=== PATIENT | male | born 1980 | race Caucasian/White ===

== ENCOUNTER 2021-02-08 15:19 | Outpatient (REF) | payer BC, SELFPAY | END 2021-02-08 15:20 | disposition home or self-care (01) | LOC: LBN 15:19 | DX: Z30.2 Encounter for sterilization (principal) | CPT/HCPCS: 89240; 89310; 89321 ==

== ENCOUNTER 2021-02-13 13:42 | Outpatient (REF) | payer BC, SELFPAY ==
[2021-02-13 13:39] LABS: Sperm(Post-Vasectomy) Absent
== END 2021-02-13 13:43 | disposition home or self-care (01) ==
LOC: LBO 13:42
PROVIDERS: Visit Provider Urology
DX: Z30.2 Encounter for sterilization (principal)
CPT/HCPCS: 89321

== ENCOUNTER 2023-03-27 08:55 | Outpatient (CLI) | payer BC, SELFPAY ==
--- NOTE | 2023-03-27 08:30 | DI.RAD_ITS ---
Exam(s) XR SHOULDER LT COMPLETE 2+V EXAM: XR SHOULDER LT COMPLETE 2+V CLINICAL HISTORY: LEFT SHOULDER PAIN. TECHNIQUE: 2D digital imaging was performed. COMPARISON: No exams were available for comparison FINDINGS: Two views. No evidence of fracture or dislocation nor abnormal soft tissue calcifications. Subacromial space do es not appear diminished. No obvious degenerative changes in the glenohumeral joint. AC joint appea rs unremarkable as does the coracoid process. No evidence of os acromiale. Bone density normal. No significant osseous lesions. IMPRESSION: No significant radiograph findings on these two views of the left shoulder. DATA REPOSITORY: RADIATION DOSE DELIVERED:
== END 2023-03-27 08:56 | disposition home or self-care (01) ==
LOC: DIORS 08:55
PROVIDERS: PCP Nurse Practitioner Family; Visit Provider Student in an Organized Health Care Education/Training Program
DX: M25.512 Pain in left shoulder (principal)
CPT/HCPCS: 73030

== ENCOUNTER → 2023-04-09 16:27 | Outpatient (CLI) | payer BC, SELFPAY ==
--- NOTE | 2023-04-09 11:55 | DI.MRI_ITS ---
Exam(s) MR UPPER JOINT LT WO EXAM: MR UPPER JOINT LT WO CLINICAL HISTORY: PAIN M75.102 ROTATOR CUFF TEAR LEFT TECHNIQUE: Multiplanar multisequence MRI of the shoulder was performed. COMPARISON: CR XR SHOULDER LT COMPLETE 2+V from 03/27/2023 FINDINGS: MARROW:There is no evidence of fracture, Hill-Sachs deformity, nor ominous osseous lesions. There is a degenerative subarticular cyst the most anterior aspect of the greater tuberosity with some surroun ding bone edema. ROTATOR CUFF MECHANISM: AC JOINT/ACROMIUM: There are mild degenerative changes in the AC joint. No dominant downgoing osteop hytes causing impingement at this level. The undersurface of the acromion does not exhibit bony ridg ing. There is no enthesophyte at the level of the coracoacromial ligament.. There is no evidence of os acromiale. Supraspinatus: There is increased signal evident in the most anterior aspect of the supraspinatus ten don. No obvious full-thickness tear. No atrophy. There is no fluid in the subacromial bursa. Infraspinatus: Intact. No evidence of tear nor muscle atrophy. Teres Minor: Intact. No evidence of tear nor muscle atrophy. Subscapularis/anterior cuff: Intact. No abnormal signal at the level of the multipennate insertional fibers. No significant tear nor atrophy. BICEPS TENDON: Not displaced from the intertubercular groove although there is fluid in the tendon sh eath consistent with tenosynovitis. There is no loose intra-articular body within the tendon sheath. LABRUM: No abnormal signal seen in the superior labrum posterior to the biceps tendon attachment site . No evidence of SLAP tear. Posterior labrum appears intact. Linear lucency in the anterior labrum noted on 1 image which may represent a tear of the anterior lab rum. There is no abnormal intraosseous signal in the anteroinferior osseous glenoid. The inferior l abrum appears intact. There is no evidence of paralabral cyst. There is no obvious tear of the infe rior glenohumeral ligament. GLENOHUMERAL JOINT: No prominent joint effusion nor obvious loose intra-articular bodies. Some fluid is seen isolated to the biceps tendon sheath but no true articular fusion. No chondral defects. No osteophytes. QUADRILATERAL SPACE: No evidence of mass in the region of the axillary nerve and dorsal circumflex hu meral vessels. Visualized triceps muscle at this level appears unremarkable. IMPRESSION: 1. There is fluid around the biceps tendon within the intertubercular groove, consistent with biceps tenosynovitis. There is no obvious tear nor displacement of the long head biceps tendon. There is n o tear at its insertion on the anterosuperior labrum and no evidence of SLAP tear. There is no loose intra-articular body seen in the biceps tendon sheath. 2. Small linear focus noted in the anterior labrum mid aspect which may imply a small tear at this le mary. Posterior labrum appears unremarkable as does the inferior labrum. No paralabral cyst. No peggy dence of osseous Bankart lesion nor periosteal stripping from the glenoid. 3. There is some tendinitis signal evident within the more anterior aspect of the supraspinatus. No full-thickness tear. No atrophy. Other muscular components of the rotator cuff mechanism appear unr emarkable. DATA REPOSITORY:
== END ==
PROVIDERS: PCP Nurse Practitioner Family; Visit Provider Student in an Organized Health Care Education/Training Program
DX: M75.22 Bicipital tendinitis, left shoulder (principal); M25.512 Pain in left shoulder
CPT/HCPCS: 73221

== ENCOUNTER 2024-04-30 03:33 | Outpatient (CLI) | payer BC, SELFPAY ==
[2024-04-30 07:42] LABS: Hemoglobin A1C 5.4 % (<5.7)
[2024-04-30 07:50] LABS: Anion Gap 6.5 mmol/L (3-11); BUN 15 mg/dL (7-18); CO2 30.5 mmol/L (21.0-32.0); Calcium 9.5 mg/dL (8.5-10.1); Calculated LDL 108 mg/dL (<100); Chloride 106 mmol/L (98-107); Cholesterol 180 mg/dL (<200); Estimated GFR 95.18 (mL/min/1.73m2); Glucose 89 mg/dL (74-106); HDL Cholesterol 53 mg/dL (40-60); Potassium 4.4 mmol/L (3.5-5.1); Sodium 143 mmol/L (136-145); Triglyceride 97 mg/dL (<150)
== END 2024-04-30 03:34 | disposition home or self-care (01) ==
PROVIDERS: PCP Nurse Practitioner Family; Visit Provider Nurse Practitioner Family
DX: Z00.00 Encounter for general adult medical examination without abnormal findings (principal); J45.909 Unspecified asthma, uncomplicated
CPT/HCPCS: 36415; 80048; 80061; 83036

== ENCOUNTER 2024-05-05 23:00 | Outpatient (REF) | payer BC, SELFPAY | END 2024-05-05 23:01 | disposition home or self-care (01) | LOC: LBN 23:00 | PROVIDERS: PCP Nurse Practitioner Family; Visit Provider Nurse Practitioner Family | DX: J34.89 Other specified disorders of nose and nasal sinuses (principal) | CPT/HCPCS: 87077; 87070; 87186; 87205 ==

== ENCOUNTER 2024-07-15 12:12 | Outpatient (REF) | payer BC, SELFPAY ==
--- NOTE | 2024-07-15 08:30 | SKI_PTH ---
PATIENT: Orlin Reddy LOC: [facility] U#:[id number] AGE/SX: 44/M ROOM: RE07/15/[address]: Brett Otoole MD : 1980 BED: DIS: 07/15/2024 SPEC #: [id number] RECD: 07/15/24 12:45 STATUS: BEA REChay #: [id number] KENY: 07/15/24 08:[address]: Brett Otoole DEPT: Surgical Specimen RECD BY: Ledy Kaur ENTERED: 07/15/24 12:45 SP TYPE: SARITA MARISCAL DR: Marissa Kendall, LUZMARIA Tissues: 1 - SKIN BIOPSY(SHAVE/PUNCH) Procedures: SKIN LEVEL 4 Comments: [id number]
== END 2024-07-15 12:13 | disposition home or self-care (01) ==
LOC: LBN 12:12
PROVIDERS: PCP Nurse Practitioner Family; Visit Provider Otolaryngology
DX: L98.9 Disorder of the skin and subcutaneous tissue, unspecified (principal); L57.0 Actinic keratosis
CPT/HCPCS: 88305

== ENCOUNTER 2024-12-01 08:57 | Outpatient (CLI) | payer BC, SELFPAY ==
--- NOTE | 2024-12-01 08:30 | DI.RAD_ITS ---
Exam(s) XR FOOT RT COMPLETE EXAM: XR FOOT RT COMPLETE CLINICAL HISTORY: swelling of 1st MPJ, ?Ganglion, localized superficial swelling, mass, lump. TECHNIQUE: 2D digital imaging was performed. COMPARISON: No exams were available for comparison FINDINGS: 3 views No evidence of fracture or diastasis of the Lisfranc joint. There are mild degenerative changes in t he great toe metatarsophalangeal joint. The more lateral the 2 sesamoid bones subjacent to the great toe metatarsal head is noted to be bipartite. Other articulations of the foot appear unremarkable. No pes planus. There is a tiny inferior calcaneal spur. Bone density normal. No osseous lesions. IMPRESSION: Mild findings as above. No fractures. DATA REPOSITORY: RADIATION DOSE DELIVERED:
== END 2024-12-01 09:17 ==
LOC: DI 08:57
PROVIDERS: PCP Nurse Practitioner Family; Visit Provider Podiatrist
DX: M19.071 Primary osteoarthritis, right ankle and foot (principal)
CPT/HCPCS: 73630

== ENCOUNTER 2025-01-27 01:32 | Outpatient (CLI) | payer BC, SELFPAY ==
--- NOTE | 2025-01-27 07:30 | DI.MRI_ITS ---
Exam(s) MR LOWER EXTREMITY RT WO/W EXAM: MR LOWER EXTREMITY RT WO/W CLINICAL HISTORY: Periosteal lesion medial aspect of 1st metatarsal. TECHNIQUE: Multiplanar multisequence MRI was performed. CONTRAST MATERIAL: IV Contrast: 15 mL of Dotarem contrast administered. COMPARISON: CR XR FOOT RT COMPLETE from 12/01/2024 CR XR FOOT RT COMPLETE from 01/27/2025 FINDINGS: BONES/JOINTS: No evidence of fracture. No evidence of bone lesion. There are mild degenerative changes seen at the 1st MTP joint. No joint effusion identified. LIGAMENTS: The medial and lateral collateral ligaments are intact. MUSCULOTENDINOUS STRUCTURES: Visualized portion of the planar fascia is unremarkable. The visualized intrinsic muscles and tendons of the foot are unremarkable. SOFT TISSUES: There is a well-circumscribed round lesion medial to the distal 1st metatarsal. It measures 7 mm transverse by 7 mm AP x 8 mm craniocaudad. It is homogeneously hypointense on the T1 weighted images and homogeneously hyperintense on the T2 weighted images. Following contrast administration, there is thin peripheral enhancement. It is not associated with the underlying bone or musculature. It lies in the subcutaneous fat. ENHANCEMENT: No suspicious enhancement identified. OTHER FINDINGS: None. IMPRESSION: Well-circumscribed 7 x 7 x 8 mm cystic lesion adjacent to the distal 1st metatarsal. Differential considerations include ganglion cyst or synovial cyst. Abscess is considered much less likely. DATA REPOSITORY:
--- NOTE | 2025-01-27 07:30 | DI.RAD_ITS ---
Exam(s) XR FOOT RT COMPLETE EXAM: XR FOOT RT COMPLETE CLINICAL HISTORY: 1st metatarsal medial shaft,contusion rt foot, s90.31xa. TECHNIQUE: 2D digital imaging was performed of the right foot. Three images were obtained. AP, oblique and lateral views were obtained. COMPARISON: CR XR FOOT RT COMPLETE from 12/01/2024 FINDINGS: BONES: No acute fracture is present. No bony destructive lesion is seen. There is a bipartite lateral sesamoid at the head of the 1st metatarsal. JOINTS: No dislocation present. There are mild degenerative changes seen at the 1st MTP joint. SOFT TISSUE: Normal. IMPRESSION: No evidence of an acute or healing fracture. DATA REPOSITORY: RADIATION DOSE DELIVERED:
[2025-01-27] MEDS: Gadoterate meglumine 20 ML SYRINGE 15 ML IVP (12:48)
[2025-01-27] MEDS: Normal Saline Flush 10 ML SYR IVP (12:49)
== END 2025-01-27 01:52 ==
LOC: DI 01:32
PROVIDERS: PCP Nurse Practitioner Family; Visit Provider Podiatrist
DX: M79.671 Pain in right foot; S90.31XA Contusion of right foot, initial encounter; X58.XXXA Exposure to other specified factors, initial encounter
CPT/HCPCS: 73630; 73720

== ENCOUNTER 2025-05-07 08:57 | Outpatient (CLI) | payer BC, SELFPAY ==
[2025-05-07 07:35] LABS: HCT 44.7 % (40.0-50.0); HGB 14.9 g/dL (13.5-17.5); MCH 29.5 pg (27.0-33.0); MCHC 33.3 % (32.0-36.0); MCV 89 fL (80-95); MPV 8.5 fL (8.0-11.0); Platelet Count 281 10^3/uL (130-400); RBC 5.05 10^6/uL (4.36-5.78); RDW 11.9 % (11.8-14.1); RDW-SD 38.4 fL; WBC 5.49 10^3/uL (4.4-10.8)
[2025-05-07 13:57] LABS: ALT 35 U/L (10-49); AST 28 U/L (<34); Albumin 4.8 g/dL (3.4-5.0); Alkaline Phosphatase 74 U/L (46-116); Anion Gap 9.8 mmol/L (3-11); BUN 13 mg/dL (9-23); Bilirubin, Total 0.80 mg/dL (0.2-1.2); CO2 29.2 mmol/L (20.0-31.0); Calcium 9.9 mg/dL (8.3-10.6); Chloride 104 mmol/L (98-107); Cholesterol 184 mg/dL (<200); Glucose 83 mg/dL (74-106); HDL Cholesterol 50 mg/dL (>40); Potassium 4.3 mmol/L (3.5-5.1); Sodium 143 mmol/L (136-145); Total Protein 7.9 g/dL (5.7-8.2)
== END 2025-05-07 08:58 | disposition home or self-care (01) ==
LOC: LBO 08:57
PROVIDERS: PCP Nurse Practitioner Family; Visit Provider Nurse Practitioner Family
DX: Z00.00 Encounter for general adult medical examination without abnormal findings (principal); J45.909 Unspecified asthma, uncomplicated
CPT/HCPCS: 36415; 80053; 80061; 85027

== ENCOUNTER 2025-06-10 10:32 | Day surgery (SDC) | payer BC, SELFPAY ==
[2025-06-10 10:55] VITALS: BP 112/77; PULSE 56; RESP 18; TEMP 36.2; O2SAT 98
[2025-06-10] MEDS: Lactated Ringers 1,000 ML 80 ML IV (11:08)
--- NOTE | 2025-06-10 11:52 | W.ANESPRE ---
General Info Date of Service Date Performed: 06/10/25 Height: 5 ft 9.75 in Weight: 72.8 kg Body Mass Index (BMI): 23.1 Surgical Procedure: Operation Date: 06/10/25 11:50 Proposed Procedure Side Surgeon grazyna Bowen MD Meds Allergies and Home Medications Allergies Allergy/AdvReac Type Severity Reaction Status Date / Time No Known Allergies Allergy Verified 06/10/25 10:53 Home Medication ?Medication ?Instructions ?Recorded fluticasone propionate 110 1 puff inhalation BID #12 grams 08/07/24 mcg/actuation HFA aerosol inhaler albuterol sulfate 90 mcg/actuation See Rx Instructions .Route 02/10/25 aerosol inhaler .COMPLEX #8.5 grams bisacodyl 5 mg tablet,delayed 5 mg PO ONCE #4 tabs 06/02/25 release (Dulcolax (bisacodyl)) polyethylene glycol 3350 17 17 g PO ONCE #238 grams 06/02/25 gram/dose oral powder Current Visit Medications: Current Medications Generic Name Dose Route Start Last Admin Trade Name Freq PRN Reason Stop Dose Admin Ringer's Solution 1,000 mls @ 80 mls/hr 06/10/25 06:00 06/10/25 11:08 IV 06/10/25 23:59 80 mls/hr INFUSION CARLA Administration Sodium Chloride 0 ml 06/10/25 06:00 Normal Saline Flush 10 Ml Syr IV 06/10/25 23:59 PRN PRN Sodium Chloride 0 ml 06/10/25 06:00 Normal Saline 10 Ml Vial IJ 06/10/25 23:59 DIRECTED PRN Sterile Water 0 ml 06/10/25 06:00 Water,Injection,Sterile 10 Ml Vial IJ 06/10/25 23:59 DIRECTED PRN PFSH Active Problems Active Problems: Problem Status Onset Code Ganglion cyst of right foot Acute M67.471 Achilles tendinitis of left lower extremity Acute M76.62 Contusion of right foot Acute S90.31XA Pain in right foot Acute M79.671 Exostosis Acute M89.8X9 Skin lesion of scalp Acute L98.9 Contusion of left shoulder Acute 01/11/23 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 Vital Signs and Lab Results Vital Signs Most Recent Vital Signs in EMR: Most Recent Vital Signs Temp Pulse Resp BP Pulse Ox 36.2 C L 56 L 18 112/77 98 06/10/25 10:55 06/10/25 10:55 06/10/25 10:55 06/10/25 10:55 06/10/25 10:55 Anesthesia Assessment and Plan Anesthesia History Personal History: No History of General Anesthesia Family History: No Family History of Anesthesia Complications Exercise Tolerance Exercise Tolerance: Metabolic Equivalents>4 Pertinent Negatives Pertinent Negatives: No Symptoms of GERD, No Major Cardiovascular Symptoms or Complaints and No Major Pulmonary Symptoms or Complaints Cardiac & Pulmonary Exam Cardiac Exam: Normal S1/S2 Heart Sounds Pulmonary Exam: Clear Bilateral Breath Sounds Implantable Cardiac Device Does patient have a Pacemaker or an ICD?: No Airway Exam Known Difficult Airway: No Mallampati Class: 2 Mouth Opening: Normal (> 3cm) Thyromental Distance: Greater than 3 cm Neck Range of Motion: Full ROM Neck Circumference: Normal Teeth Condition: Normal Dentition ASA Classification ASA Score: ASA 2 Emergency Case?: No NPO Status NPO Status: NPO Clears >2 hours, Solids >8 hours Anesthesia Plan Resuscitation Status: Full Code Anesthesia Technique: General Anesthesia Airway Planned: Natural Airway Monitors Used: Standard Monitors
[2025-06-10 11:54] VITALS: BMI 23.1
--- NOTE | 2025-06-10 12:42 | BOWEL_PTH ---
PATIENT: Orlin Reddy LOC: [facility] U#:[id number] AGE/SX: 44/M ROOM: RE06/10/[address]: Ria Bowen MD : 1980 BED: DIS: 06/10/2025 SPEC #: [id number] RECD: 06/10/25 18:01 STATUS: BEA BAL #: [id number] KENY: 06/10/25 12:[address]: Ria Bowen DEPT: Surgical Specimen RECD BY: Ledy Kaur ENTERED: 06/10/25 18:02 SP TYPE: Bowel OTHR DR: Marissa Kendall, MD [employer]IOR [employer]EARCH SCIENTIST Tissues: 1 - BIOPSY BOWEL 2 - BIOPSY BOWEL 3 - BIOPSY BOWEL Procedures: GROSS AND MICRO LEVEL 4 Comments: [id number]
--- NOTE | 2025-06-10 12:48 | W.COLOREPORT ---
Date of service: 06/10/25 Time of Service: 12:48 Colonoscopy Report Date of procedure: 06/10/25 Pre-op diagnosis general: Colorectal cancer screening Post-op diagnosis procedure note: other (1. descending colon polyp. 2. sigmoid polyp. 3. rectum polyp. 4. Diverticulosis of sigmoid) Procedure: Colonoscopy with cold forceps polypectomy Surgeon: Ria Bowen Anesthesia Type: General:No Airway Estimated blood loss (mL): 2 Pathology: other (1. descending colon polyp. 2. sigmoid polyp. 3. rectum polyp. ) Complications: None Indications: History of tubulovillous adenoma, tubular adenoma Prep: Miralax/Dulcolax (Good) Procedure Description: Informed consent was obtained and the patient was taken to the procedure area. The patient was placed in left lateral decubitus position on the procedure table. Timeout was performed. Anesthesia was induced. A lubricated colonoscope was inserted through the anus and passed to the cecum. The cecum was identified by the ileocecal valve and the appendiceal orifice. The scope was then slowly withdrawn and the colonic and rectal mucosa examined. TI intubated and examined. It appears normal. Descending colon with 4mm sessile polyp excised with cold forceps. sigmoid colon with 3mm sessile polyp excised with cold forceps. Rectum with 3mm sessile polyp excised with cold forceps. Sigmoid diverticulosis seen, mild to moderate. The scope was retroflexed in the anorectal junction examined. Uncomplicated internal hemorrhoids present. Assessment and plan: Coorectal cancer screening descending colon polyp sigmoid polyp rectum polyp sigmoid diverticulosis Three small polyps seen and removed. Timing of next colonoscopy will depend on the pathology of these polyps. If all are hyperplastic polyps, next colonoscopy due in 10 years. If any are tubular adenoma, next scope in 5 years. If any are sessile serrated adenoma, next scope in 3 years.
[2025-06-10 12:53] VITALS: BP 101/71; PULSE 80; RESP 16; TEMP 36.1; O2SAT 97
--- NOTE | 2025-06-10 12:53 | W.PM.DSUDISC ---
Date of service: 06/10/25 Discharge Plan Disposition Patient Disposition: Home Condition: Stable Discharge Details Attending Provider: Ria Bowen Primary Care Provider: Marissa Kendall Home Meds and New Rx's Prescriptions: Continued fluticasone propionate 110 mcg/actuation HFA aerosol inhaler 1 puff inhalation BID Qty: 12 1RF albuterol sulfate 90 mcg/actuation HFA aerosol inhaler See Rx Instructions .ROUTE .COMPLEX Qty: 8.5 3RF Dose Instruction: INHALE TWO PUFFS BY MOUTH EVERY 4 TO 6 HOURS NEEDED FOR WHEEZING Rx Instructions: INHALE TWO PUFFS BY MOUTH EVERY 4 TO 6 HOURS NEEDED FOR WHEEZING Discontinued bisacodyl [Dulcolax (bisacodyl)] 5 mg tablet,delayed release (DR/EC) 5 mg PO ONCE Qty: 4 0RF Rx Instructions: Take per colonoscopy instructions provided by ordering providers office polyethylene glycol 3350 17 gram/dose powder 17 g PO ONCE Qty: 238 0RF Rx Instructions: Take per colonoscopy instructions provided by ordering providers office Discharge Instructions Additional Instructions: Three very small polyps seen and removed. Timing of next colonoscopy will depend on the pathology (biopsy results) of these polyps. If all are hyperplastic polyps, next colonoscopy due in 10 years. If any are tubular adenoma, next scope in 5 years. If any are sessile serrated adenoma, next scope in 3 years. Diverticulosis of the sigmoid colon noted, no diverticulitis (infection) present. Take a daily fiber supplement and eat a high fiber diet to prevent problems and progression of diverticulosis. Stand Alone Forms: Portal Information Activity:: Activity as Tolerated Diet:: As Tolerated Discharge Orders Discharge Orders: Discharge Order (Routine); Ordered 06/10/25 Ordered By: Ria Bowen DS: Diagnosis Discharge Diagnosis (1) Encounter for colorectal cancer screening: Status: Acute (2) Polyp of descending colon: Status: Acute (3) Sigmoid polyp: Status: Acute (4) Rectal polyp: Status: Acute (5) Diverticulosis of sigmoid colon: Status: Acute
--- NOTE | 2025-06-10 13:04 | W.ANESPOSTOP ---
Postoperative Evaluation Date, Time and Location Date Performed: 06/10/25 Time Performed: 12:55 Patient Location: Day Surgery Unit Vital Signs Most Recent Imported Vital Signs: Most Recent Vital Signs Temp Pulse Resp BP Pulse Ox 36.1 C L 80 16 101/71 97 06/10/25 12:53 06/10/25 12:53 06/10/25 12:53 06/10/25 12:53 06/10/25 12:53 Pain Score Most Recent Pain Score: Most Recent Pain Score Pain Level 0 06/10/25 12:53 Assessment Mental Status: Arousable with meaningful communication Airway and Respiratory Function: Patent airway with normal (patient baseline) respiratory exam Cardiovascular Function: Hemodynamically Stable Hydration Status: Adequately Hydrated Nausea & Vomiting: No Nausea or Vomiting Pain: Pt. Denies Any Pain Peripheral Nerve Block: Patient did not receive a nerve block
[2025-06-10 13:23] VITALS: BP 116/79; PULSE 63; RESP 16; TEMP 36.2; O2SAT 100
== END 2025-06-10 13:30 | disposition home or self-care (01) ==
PROVIDERS: PCP Nurse Practitioner Family; Visit Provider Surgery
PROC: 0DJD8ZZ Inspection of Lower Intestinal Tract, Via Natural or Artificial Opening Endoscopic (ICD-10-PCS; CPT 45378; principal; 2025-06-10 11:45)
DX: Z12.11 Encounter for screening for malignant neoplasm of colon (principal); Z12.12 Encounter for screening for malignant neoplasm of rectum; D12.4 Benign neoplasm of descending colon; K62.1 Rectal polyp; K57.30 Diverticulosis of large intestine without perforation or abscess without bleeding
CPT/HCPCS: 45380; 88305; J2003; J2704